=== PATIENT | female | born 1990 | race Caucasian/White ===

== ENCOUNTER 2018-12-05 10:47 | Observation (INO) | payer BC ==
[2018-12-05] MEDS ORDERED: NS 1,000 ML IV ONE (10:52)
[2018-12-05 11:36] LABS: PLATELET COUNT 180 10^3/uL (150-400)
[2018-12-05 11:46] LABS: INR 1.02 (0.83-1.16)
--- NOTE | 2018-12-05 11:58 | PDGENHP ---
History & Physical Chief Complaint: SVT History of Present Illness: atrial tachycardia, presenting for ablation. history of AVNRT ablation. Relevant Physical Exam: A+Ox4, nonfocal, RR/NR, no MRG, CTAB Cardiorespiratory Assessment: SVT -> EPS/ablation
--- NOTE | 2018-12-05 13:00 | PDANEPAE ---
ANE History of Present Illness SVT ANE Past Medical History - Cardiovascular History Hx Hypertension: No Hx Arrhythmias: Yes Hx Chest Pain: No Hx Coronary Artery / Peripheral Vascular Disease: No Hx CHF / Valvular Disease: No Hx Palpitations: Yes Cardiovascular History Comment: SVT - Pulmonary History Hx COPD: No Hx Asthma/Reactive Airway Disease: No Hx Recent Upper Respiratory Infection: No Hx Oxygen in Use at Home: No Hx Sleep Apnea: No ANE Review of Systems Review of systems is: negative Review of Systems: ANE Patient History - Allergies Allergies/Adverse Reactions: No Known Allergies Allergy (Verified 11/28/18 10:47) - Home Medications Home medications: home medication list seen and reviewed Home Medications: Citalopram [CeleXA] 20 mg PO DAILY 11/28/18 [Last Taken 12/05/18] Flecainide Acetate [Tambocor] 100 mg PO BID 11/28/18 [Last Taken 12/02/18] - Smoking Hx Smoking Status: Former smoker ANE Labs/Vital Signs - Labs Result Diagrams: 12/05/18 11:20 12/05/18 11:20 - Vital Signs Height: 165.1 cm Weight: 48.534 kg ANE Physical Exam - Airway Neck exam: FROM Mallampati Score: Class 2 Mouth exam: normal dental/mouth exam - Pulmonary Pulmonary: no respiratory distress, clear to auscultation - Cardiovascular Cardiovascular: regular rate and rhythym, no murmur, rub, or gallop - ASA Status ASA Status: III ANE Anesthesia Plan Anesthesia Plan: general endotracheal anesthesia
[2018-12-05] MEDS ORDERED: HEPARIN 10,000 UNIT/10 ML MDV (1,000 UNIT/ML) ONE (14:07)
[2018-12-05] MEDS ORDERED: LIDOCAINE 1% 300 MG/30 ML SDV ONE (14:07)
[2018-12-05] MEDS ORDERED: ISOPROTERENOL HCL/D5W 0.2 MG/50 ML BAG IV ONE (14:08)
[2018-12-05] MEDS ORDERED: BUPIVACAINE 0.75% 10 ML SDV ONE (14:08)
[2018-12-05] MEDS ORDERED: PROPOFOL/EMULSION 500 MG/50 ML BOTTLE IV ONE (14:18)
[2018-12-05] MEDS ORDERED: SUCCINYLCHOLINE CHLORIDE 200 MG/10 ML SYR IVP ONE (14:18)
[2018-12-05] MEDS ORDERED: ONDANSETRON 4 MG/2 ML VIAL ONE (16:27)
[2018-12-05] MEDS ORDERED: DEXAMETHASONE 4 MG/ML VIAL ONE ×2 (16:27)
[2018-12-05] MEDS ORDERED: ePHEDrine SULFATE 25 MG/5 ML SYR ONE (16:28)
[2018-12-05] MEDS ORDERED: LR 500 ML IV PRN (17:44)
[2018-12-05] MEDS ORDERED: ALBUTEROL 3 ML DEYVIAL IH PRN (17:44)
[2018-12-05] MEDS ORDERED: ACETAMINOPHEN 500 MG TAB PO PRN (17:44)
[2018-12-05] MEDS ORDERED: PROMETHAZINE HCL 25 MG/ML INJ IVP PRN (17:44)
[2018-12-05] MEDS ORDERED: ACETAMINOPHEN 325 MG TAB PO PRN (17:44)
[2018-12-05] MEDS ORDERED: NALOXONE HCL 0.4 MG/ML INJ IVP PRN (17:44)
[2018-12-05] MEDS ORDERED: fentaNYL 100 MCG/2 ML INJ IVP PRN (17:44)
[2018-12-05] MEDS ORDERED: HYDROCODONE/APAP 5/325 TAB PO PRN (17:44)
--- NOTE | 2018-12-05 17:45 | POSTANESTH ---
Post Anesthetic Evaluation Cardiovascular Status: Normal, Stable Respiratory Status: Normal, Stable Level of Consciousness/Mental Status: Can Participate in Eval, Alert and Oriented Pain Control: Adequate, Prn Tx Ordered Nausea/Vomiting Control: Adequate, Prn Tx Ordered Complications Possibly Related to Anesthesia: None Noted
--- NOTE | 2018-12-05 17:58 | EPPROC ---
Electrophysiology Procedure Note: Date: 12/05/2018 Salvationist: Suraj Figueredo MD Procedures: Comprehensive EP study and catheter ablation of SVT -48753 CS catheter placement/pacing -22299 3D electro anatomic mapping -68814 Attempted induction of arrhythmia following drug infusion -43185 Intracardiac echo -86023 Indications: 28-year-old female with history of SVT ablation (typical AVNRT), presenting with ongoing palpitations. Ambulatory monitoring suggestive of nonsustained atrial tachycardia, as well as a sustained arrhythmia which is presumed to be atrial tachycardia. Techniques: Following informed consent, the patient was brought to the EP lab in a fasting nonsedated state, in sinus rhythm. General anesthesia was provided by the anesthesiology service. Bilateral groins were prepped and draped in usual sterile fashion. 1% lidocaine was infiltrated over the right femoral vessels, and vascular access was obtained x3 under ultrasound guidance, with placement of 8 [place] and 2 5 [place] hemostasis sheath. Under fluoroscopic guidance, a decapolar catheter was positioned in the CS; quads at HRA and RVA. Baseline rhythm was sinus, with no manifest ventricular pre-excitation PP 973ms NJ 133ms QRS 61ms QT 401ms AH 66ms HV 53ms Av block cycle length could not be obtained, due to induction of SVT with CS proximal pacing. This appeared to initiate with an AH jump. This was a narrow complex tachycardia, with cycle length 410-420 milliseconds, concentric retrograde atrial activation sequence, septal VA time 47 milliseconds. Entrainment from RV apical position showed [id number], and VAV response. Based on these findings, typical AV karyn reentry was diagnosed. The ventricular quad was removed, and the 5 [place] sheath was exchanged for an SR 0 sheath. A non irrigated DF curve ablation catheter was inserted, and was used to create a CARTO map of the right atrium and proximal CS. The his position was annotated. The slow pathway region was localized using anatomic landmarks and local potentials. RF ablation was performed in this location at 20 to 30 w power and 55 degree C limits. During RF ablation, junctional automaticity was observed, with consistent antegrade and retrograde conduction. However, despite extensive ablation with the nonirrigated catheter, SVT continued to be readily inducible with atrial burst pacing. The proximal CS was explored for potential leftward extension of the AV node. There appeared to be a ridge along the floor of the CS, just at the CS ostium, which showed slow pathway potentials. RF ablation in this location was limited by significant temperature rises, obtaining less than 10 w power delivery. Due to suspected challenging CS anatomy, as well as temperature limited power delivery, an additional access was obtained in the right femoral vein with placement of an 8 [place] sheath. An intracardiac echo catheter was advanced, and did reveal a ridge along the floor of the CS; as well as a prominent [place]ian valve. A Smart Touch irrigated ablation catheter was inserted, and RF ablation was performed at 25-35 w power in the region of interest. Junctional automaticity was again observed, with consistent antegrade and retrograde conduction. Following this round of irrigated ablation, SVT was no longer readily inducible with atrial burst pacing. Repeat EP study was performed with isoproterenol infusion (up to 8mcg/min). During both the baseline state and during isoproterenol infusion, sustained SVT was no longer inducible. Nonsustained atrial tachycardia was seen following rounds of both atrial burst pacing and program stimulation. There was no longer evidence of slow pathway conduction the. On isoproterenol, AVN ERP sensed/250/220ms (directly off fast pathway). At the conclusion of the procedure, intracardiac echo survey showed no evidence of pericardial effusion. All catheters removed. A temporary hemostasis suture was applied to the right groin access site, and all sheaths were removed; manual pressure was held until hemostasis. The patient tolerated the procedure well. 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 Suspect this is related to variant CS anatomy, with prominent CS floor ridge limiting power delivery to the slow pathway region. Successfully ablated. Plan: Six our bedrest postprocedure Remove right groin suture at the completion of bedrest Aspirin 81 mg daily for the next month Atenolol 25 mg daily for suppression of postablation ectopy Stop flecainide
--- NOTE | 2018-12-05 18:34 | CPEKG ---
Test Reason : OPEN Blood Pressure : / mmHG Vent. Rate : 064 BPM Atrial Rate : 064 BPM P-R Int : 118 ms QRS Dur : 071 ms QT Int : 391 ms P-R-T Axes : 070 077 068 degrees QTc Int : 404 ms Sinus rhythm Confirmed by Maria Fernanda Palacios ([id number]) on 12/05/2018 6:33:58 PM Referred By: Tolu Figueredo Confirmed By:Maria Fernanda Palacios
--- NOTE | 2018-12-05 18:53 | CPEKG ---
Test Reason : OPEN Blood Pressure : / mmHG Vent. Rate : 088 BPM Atrial Rate : 088 BPM P-R Int : 192 ms QRS Dur : 071 ms QT Int : 379 ms P-R-T Axes : -49 073 001 degrees QTc Int : 459 ms Sinus or ectopic atrial rhythm Minimal ST depression, inferior and lateral Compared with 12/05/2018 at 11:15 am, inf STD are new Confirmed by Maria Fernanda Palacios ([id number]) on 12/05/2018 6:52:24 PM Referred By: Tolu Figueredo Confirmed By:Maria Fernanda Palacios
[2018-12-06 04:41] LABS: PLATELET COUNT 163 10^3/uL (150-400)
[2018-12-06 04:52] LABS: CREATINE KINASE 230 IU/L (0-156)
[2018-12-06 07:45] VITALS: BP 90/41
[2018-12-06] MEDS ORDERED: ATENOLOL 25 MG TAB PO SCH (09:00)
[2018-12-06] MEDS ORDERED: ASPIRIN 81 MG CHEWABLE TAB PO SCH (09:00)
[2018-12-06] MEDS ORDERED: CITALOPRAM 20 MG TAB PO SCH (09:00)
--- NOTE | 2018-12-06 09:19 | ASDISCHSUM ---
Discharge Information Plan Status:Home with No Needs Medically Cleared to Leave:12/06/2018 Discharge Date:12/06/2018 CM D/C Disposition:Home, Routine, Self-Care ADT D/C Disposition:Home, Routine, Self-Care Projected Discharge Date:12/06/2018 Transportation at D/C: Discharge Delay Reason: Follow-Up Date:12/06/2018 Discharge Slot: Final Diagnosis: Placement Information Patient Contact Information Contact Name:AIME Relationship:Other Address: Work Phone: City: [facility] [place] Phone: State/Zip Code: Email: Financial Information Financial Class:BCOP Primary Plan Desc:BC OUT OF STATE PPO Primary Plan Number:[id number] Secondary Plan Desc: Secondary Plan Number: Assessment Information LACE LACE Length of stay for Answers: Less than 1 day current admission Acuity / Level of Answers: No Care: Did the patient have an inpatient admission? # of Emergency department Answers: 0 visits in the last 6 months Date Signed: 12/06/2018 09:18 AM Electronically Signed By:Leonarda Aly RN Intervention Information
--- NOTE | 2018-12-06 18:08 | GDS ---
[f rep st] DISCHARGE SUMMARY DISCHARGE DIAGNOSES: 1. Atrioventricular karyn reentry tachycardia. 2. Status post atrioventricular karyn reentry tachycardia ablation. BRIEF HISTORY: This is a 28-year-old woman who had a prior AVNRT ablation by Dr. Figueredo. She experienced episodes of palpitations with a sustained tachycardia post procedure, and she presented for repeat EP study and ablation if indicated. HOSPITAL COURSE: Dr. Figueredo performed ablation of typical AVNRT successfully. The patient has done well overnight. She has not had any chest pain, or bleeding at groin site. One stitch was removed from her right groin site without problem. Vital signs have remained stable. Telemetry demonstrates sinus rhythm without any tachycardia. LAB WORK: WBC is 4.96, hemoglobin 13.2, hematocrit 39, platelets 163. Sodium is 139, potassium 4.8, chloride 109, bicarb 20, BUN is 11, creatinine 0.6, glucose is 123. CK 230 troponin 1.15, CK-MB fraction 4.6, CK-MB percent 2, troponin 1.15. PHYSICAL EXAMINATION: VITAL SIGNS: Blood pressure 90/41, pulse is 68, respirations 18, temperature 36.8, O2 saturation is 97%. GENERAL: She is alert and oriented, sitting up in bed, in no acute distress. CARDIAC: Regular rate and rhythm without murmur, rub, or gallop. LUNGS: Clear to auscultation. ABDOMEN: Soft, nontender. Groin site without bleeding or hematoma. EXTREMITIES: Warm. No lower extremity edema or discoloration. Bilateral +2 pedal pulses. DISCHARGE MEDICATIONS: She will continue with atenolol 25 mg p.o. daily for at least 1 month or until followup. Flecainide was stopped. 81 mg of aspirin daily for 6 weeks. DISCHARGE INSTRUCTIONS: Post ablation activity restrictions were reviewed verbally, and she was given written instructions at discharge. FOLLOWUP: She has a followup on January [address] Figueredo at 10:30. ADDENDUM Suraj Figueerdo MD - patient seen and case discussed with Ms Gilmore. Relevant portions of history/physical/ros/data review or personally performed. Uneventful postprocedure observation, status post ablation of typical AVNRT. Postprocedure care and follow-up as detailed above. /[id number]/MODL MTDD
--- NOTE | 2018-12-07 15:18 | CPEKG ---
Test Reason : OPEN Blood Pressure : / mmHG Vent. Rate : 070 BPM Atrial Rate : 070 BPM P-R Int : 127 ms QRS Dur : 073 ms QT Int : 393 ms P-R-T Axes : 057 070 055 degrees QTc Int : 425 ms Sinus rhythm Confirmed by Maria Fernanda Palacios ([id number]) on 12/07/2018 3:17:34 PM Referred By: Tolu Figueredo Confirmed By:Maria Fernanda Palacios
== END 2018-12-06 11:49 | disposition home or self-care (01) ==
LOC: FCATH 10:47 → F2W 17:44
PROVIDERS: ADMIT Internal Medicine Cardiovascular Disease; ATTEND Internal Medicine Cardiovascular Disease
DX: I47.1 Supraventricular tachycardia (principal)
CPT/HCPCS: 93005; 93613; 93621; 93623; 93653; 93662; C1730; C1732; C1893; G0378; C1759; J0330; J1100; J1644; J2405; J2550; J2704

== ENCOUNTER → 2018-12-12 | Outpatient (CLI) | payer BC | LOC: FIMAGING 13:36 | PROVIDERS: ATTEND Internal Medicine Cardiovascular Disease | DX: K59.00 Constipation, unspecified (principal); I47.1 Supraventricular tachycardia ==